=== PATIENT | female | born 1955 | race Caucasian/White ===

== ENCOUNTER 2020-08-31 13:50 | Outpatient (CLI) | payer BC | END 2020-08-31 13:51 | disposition home or self-care (01) | LOC: CSHCT 13:50 | PROVIDERS: ATTEND Internal Medicine Cardiovascular Disease | DX: R79.89 Other specified abnormal findings of blood chemistry (principal) | CPT/HCPCS: 71275 ==

== ENCOUNTER 2021-07-05 08:23 | Outpatient (CLI) | payer BC ==
[2021-07-05 15:43] LABS: SARS-CoV-2 PCR by NAA DETECTED (NotDetected)
== END 2021-07-05 08:24 | disposition home or self-care (01) ==
LOC: CSHLAB 08:23
PROVIDERS: ATTEND Family Medicine
DX: U07.1 COVID-19 (principal)
CPT/HCPCS: U0003; U0005

== ENCOUNTER 2022-01-21 12:55 | Outpatient (CLI) | payer MEDICARE, OTHER | END 2022-01-21 12:56 | disposition home or self-care (01) | LOC: CSHLAB 12:55 | PROVIDERS: ATTEND Internal Medicine Critical Care Medicine | DX: Z20.822 Contact with and (suspected) exposure to COVID-19 (principal) | CPT/HCPCS: 87811 ==

== ENCOUNTER 2022-01-24 07:35 | Outpatient (CLI) | payer MEDICARE, OTHER | END 2022-01-24 07:36 | disposition home or self-care (01) | LOC: CSHCP 07:35 | PROVIDERS: ATTEND Internal Medicine Critical Care Medicine | DX: R06.09 Other forms of dyspnea (principal); J44.9 Chronic obstructive pulmonary disease, unspecified | CPT/HCPCS: 94060; 94726; 94729; 94760 ==

== ENCOUNTER 2023-08-08 19:59 | Emergency (ER) | payer MEDICARE ==
[2023-08-08 21:11] LABS: #Basophils 0.1 10x3/uL (0.0-0.2); #Eosinphils 0.2 10x3/uL (0.0-0.5); #Monocytes 0.8 10x3/uL (0.0-1.1); #Neutrophils 3.3 10x3/uL (1.5-8.4); %Basophils 1.6 % (0.0-2.0); %Eosinophils 3.4 % (0.0-6.0); %Lymphocytes 30.5 % (18.0-47.0); %Monocytes 12.5 % (0.0-10.0); %Neutrophils 51.8 % (40.0-75.0); Hematocrit 38.8 % (34.9-44.5); Hemoglobin 12.9 g/dL (12.0-15.5); Mean Corpuscular HGB CONC 33.2 g/dL (32.0-36.0); Mean Corpuscular Hemoglobin 30.6 pg (27.0-33.0); Mean Corpuscular Volume 91.9 fl (81.6-98.3); Mean Platelet Volume 10.8 fl (7.4-10.4); Platelet Count 304 10x3/uL (150-450); RBC Distribution Width 14.9 % (11.5-14.5); Red Blood Cell (RBC) Count 4.22 10x6/uL (3.90-5.03); White Blood Cell (WBC) Count 6.3 10x3/uL (3.5-10.5)
[2023-08-08 21:19] LABS: INR-International Normal Ratio 1.1; Prothrombin Time 11.3 sec (9.5-12.1)
[2023-08-08 21:22] LABS: ALT (SGPT) 13 U/L (8-55); AST (SGOT) 26 U/L (5-34); Albumin 4.1 g/dL (3.4-4.8); Alkaline Phosphatase 71 U/L (40-110); Anion Gap 12 mmol/L (10-20); BUN (Urea Nitrogen) 19 mg/dL (9.8-20.1); Bilirubin, Total 0.4 mg/dL (0.2-1.2); Calc. Creatinine Clearance 0 mL/min (70-130); Calcium 8.9 mg/dL (7.8-10.44); Carbon Dioxide 28 mmol/L (23-31); Chloride 104 mmol/L (98-107); Estimated GFR 77; Globulin 2.8 g/dL (2.4-3.5); Glucose 126 mg/dL (80-115); Potassium 3.8 mmol/L (3.5-5.1); Protein, Total 6.9 g/dL (5.8-8.1); Sodium 140 mmol/L (136-145)
[2023-08-08] MEDS ORDERED: Gabapentin 300 MG CAP ONE (21:40)
[2023-08-08] MEDS ORDERED: HYDROmorphone 2 MG TAB PO SCH (22:00)
== END 2023-08-08 22:55 | disposition home or self-care (01) ==
LOC: CSHERS 19:59
DX: M79.601 Pain in right arm (principal); I89.0 Lymphedema, not elsewhere classified; I10 Essential (primary) hypertension; E11.9 Type 2 diabetes mellitus without complications; Z79.4 Long term (current) use of insulin; Z79.899 Other long term (current) drug therapy
CPT/HCPCS: 80053; 85025; 85610